=== PATIENT | male | born 1940 | race Caucasian/White ===

== ENCOUNTER 2022-04-12 02:32 | Inpatient (IN) | payer MEDICARE, BC ==
[2022-04-12] MEDS ORDERED: Ondansetron PF 4 MG/2 ML Vial IVP PRN (06:30)
[2022-04-12] MEDS ORDERED: Ondansetron ODT 4 MG TAB SL PRN (06:30)
[2022-04-12] MEDS ORDERED: Acetaminophen 325 MG TAB PO PRN (07:20)
[2022-04-12] MEDS ORDERED: Senokot S 8.6-50 MG TAB PO PRN (07:20)
[2022-04-12] MEDS ORDERED: Bisacodyl 5 MG TAB PO PRN (07:20)
[2022-04-12] MEDS ORDERED: Calcium Carbonate 500 MG ChewTAB PO PRN (07:20)
[2022-04-12] MEDS ORDERED: Dextrose 5% in Water 1,000 ML IV PRN (07:33)
[2022-04-12 08:40] LABS: #Basophils 0.1 thou/uL (0.0-0.2); #Eosinphils 0.3 thou/uL (0.0-0.7); #Lymphocytes 1.4 thou/uL (1.20-3.40); #Monocytes 0.5 thou/uL (0.11-0.59); #Neutrophils 4.6 thou/uL (1.40-6.50); %Basophils 1.2 % (0.0-1.0); %Eosinophils 4.4 % (0.0-10.0); %Lymphocytes 20.3 % (21.0-51.0); %Monocytes 7.1 % (0.0-10.0); %Neutrophils 66.9 % (42.0-75.0); Mean Corpuscular HGB CONC 27.7 g/dL (32.0-36.0); Mean Corpuscular Hemoglobin 24.6 pg (27.0-31.0); Mean Corpuscular Volume 88.7 fl (78.0-98.0); Mean Platelet Volume 10.3 fL (7.4-10.4); Platelet Count 146 thou/uL (130-400); RBC Distribution Width 19.9 % (11.5-14.5); Red Blood Cell (RBC) Count 4.48 mill/uL (4.70-6.10); White Blood Cell (WBC) Count 6.8 thou/uL (4.8-10.8)
[2022-04-12 08:55] LABS: ALT (SGPT) 16 U/L (8-55); AST (SGOT) 15 U/L (5-34); Alkaline Phosphatase 171 U/L (40-110); Anion Gap 12 mmol/L (10-20); BUN (Urea Nitrogen) 31 mg/dL (8.4-25.7); Bilirubin, Total 0.6 mg/dL (0.2-1.2); Calc. Creatinine Clearance 64 mL/min (70-130); Calcium 8.8 mg/dL (7.8-10.44); Carbon Dioxide 37 mmol/L (23-31); Chloride 101 mmol/L (98-107); Estimated GFR 55; Globulin 3.1 g/dL (2.4-3.5); Potassium 4.1 mmol/L (3.5-5.1); Protein, Total 6.1 g/dL (5.8-8.1); Sodium 146 mmol/L (136-145)
[2022-04-12 08:59] LABS: Glucose 56 mg/dL (83-110)
[2022-04-12 09:00] LABS: Troponin I 0.041 ng/mL (< 0.028)
[2022-04-12] MEDS ORDERED: Vancomycin 1 GM in Premix Bag 1 BAG IVPB SCH (09:00)
[2022-04-12] MEDS: Enoxaparin Sodium 40 MG/0.4 ML SYRINGE SC SCH (09:51)
[2022-04-12] MEDS: Dutasteride 0.5 MG CAP PO SCH (09:52)
[2022-04-12] MEDS: Aspirin 81 mg Enteric Coated Tablet PO SCH (09:52)
[2022-04-12] MEDS: Levothyroxine Sodium 75 MCG TAB PO SCH (09:53)
[2022-04-12] MEDS: Tamsulosin HCl 0.4 MG CAP PO SCH (09:53)
[2022-04-12] MEDS ORDERED: Piperacillin/Tazobactam 3.375 GM in Sodium Chloride 0.9% 100 ML IVPB SCH (10:00)
[2022-04-12] MEDS: Furosemide 40 MG/4 ML VIAL SLOW IVP SCH ×2 (11:39→22:48)
[2022-04-12] MEDS: Albumin 25% 25 GM/100 ML BOT IVPB SCH ×2 (11:39→22:48)
[2022-04-12] MEDS: AMPicillin 1 GM in Sodium Chloride 0.9% 100 ML IVPB SCH ×2 (12:56→19:54)
[2022-04-12 13:07] LABS: Troponin I 0.042 ng/mL (< 0.028)
[2022-04-12] MEDS ORDERED: FLU VACC QS2022-23(65YR UP)/PF 240 MCG/0.7 ML SYRINGE IM ONE (14:00)
[2022-04-12] MEDS: Dextrose 50% Abboject 50 ML SYRINGE SLOW IVP PRN (14:38)
[2022-04-12] MEDS ORDERED: Dextrose 10% in Water 1,000 ML IV SCH (18:30)
[2022-04-12] MEDS: Arformoterol 15 MCG/2 ML NEB NEB SCH (19:17)
[2022-04-12] MEDS ORDERED: Dextrose 10% in Water 500 ML IV SCH (20:00)
[2022-04-13] MEDS: AMPicillin 1 GM in Sodium Chloride 0.9% 100 ML IVPB SCH ×5 (00:55→23:33)
[2022-04-13 05:34] LABS: ALT (SGPT) 16 U/L (8-55); AST (SGOT) 14 U/L (5-34); Albumin 3.6 g/dL (3.4-4.8); Alkaline Phosphatase 161 U/L (40-110); BUN (Urea Nitrogen) 27 mg/dL (8.4-25.7); Bilirubin, Total 0.8 mg/dL (0.2-1.2); Calc. Creatinine Clearance 65 mL/min (70-130); Estimated GFR 56; Globulin 2.9 g/dL (2.4-3.5); Glucose 221 mg/dL (83-110); Protein, Total 6.5 g/dL (5.8-8.1)
[2022-04-13 05:43] LABS: Anion Gap 20 mmol/L (10-20); Carbon Dioxide 33 mmol/L (23-31); Chloride 97 mmol/L (98-107); Potassium 4.5 mmol/L (3.5-5.1); Sodium 145 mmol/L (136-145)
[2022-04-13 06:34] LABS: Magnesium 1.9 mg/dL (1.6-2.6)
[2022-04-13 06:38] LABS: Troponin I 0.042 ng/mL (< 0.028)
[2022-04-13] MEDS: Arformoterol 15 MCG/2 ML NEB NEB SCH ×2 (07:05→20:17)
[2022-04-13 07:33] LABS: Actual Bicarbonate (HCO3a) 39.7 mEq/L (22-28); Base Excess (BEa) 12.8 mEq/L (-2.0 to +3.0); Calcium, Ionized (arterial) 1.08 mmol/L (1.12-1.30); Carboxyhemoglobin (COHb) 1.3 gm% (0.0-3.0); Hemoglobin (Hb) 11.3 g/dL (14.0-18.0); Potassium - ABG Lab 4.44 mmol/L (3.70-5.30); pH, Arterial 7.41 (7.35-7.45)
[2022-04-13 07:40] LABS: O2 Tension (PaO2), arterial 44.8 mmHg (> 70.0); Puncture Site LRA
[2022-04-13] MEDS: Enoxaparin Sodium 40 MG/0.4 ML SYRINGE SC SCH (08:57)
[2022-04-13] MEDS: Aspirin 81 mg Enteric Coated Tablet PO SCH (08:58)
[2022-04-13] MEDS: Dutasteride 0.5 MG CAP PO SCH (08:59)
[2022-04-13] MEDS: Levothyroxine Sodium 75 MCG TAB PO SCH (08:59)
[2022-04-13] MEDS: Tamsulosin HCl 0.4 MG CAP PO SCH (08:59)
[2022-04-13] MEDS: Furosemide 40 MG/4 ML VIAL SLOW IVP SCH ×2 (10:07→21:12)
[2022-04-13] MEDS: Albumin 25% 25 GM/100 ML BOT IVPB SCH ×3 (10:07→21:12)
[2022-04-13] MEDS ORDERED: Midazolam HCl 2 mg/2 ml Vial SLOW IVP PRN (18:01)
[2022-04-13] MEDS: OLANZapine 10 MG VIAL IM SCH ×2 (18:07→18:32)
[2022-04-14 05:27] LABS: #Basophils 0.1 thou/uL (0.0-0.2); #Eosinphils 0.1 thou/uL (0.0-0.7); #Lymphocytes 1.2 thou/uL (1.20-3.40); #Monocytes 0.6 thou/uL (0.11-0.59); %Basophils 0.7 % (0.0-1.0); %Eosinophils 0.9 % (0.0-10.0); %Lymphocytes 16.8 % (21.0-51.0); %Monocytes 8.6 % (0.0-10.0); Hemoglobin 10.4 g/dL (14.0-18.0); Mean Corpuscular HGB CONC 27.6 g/dL (32.0-36.0); Mean Corpuscular Hemoglobin 24.5 pg (27.0-31.0); Mean Corpuscular Volume 88.8 fl (78.0-98.0); Mean Platelet Volume 10.3 fL (7.4-10.4); Platelet Count 171 thou/uL (130-400); RBC Distribution Width 19.7 % (11.5-14.5); Red Blood Cell (RBC) Count 4.26 mill/uL (4.70-6.10); White Blood Cell (WBC) Count 6.8 thou/uL (4.8-10.8)
[2022-04-14 05:37] LABS: ALT (SGPT) 96 U/L (8-55); AST (SGOT) 89 U/L (5-34); Albumin 4.1 g/dL (3.4-4.8); Alkaline Phosphatase 328 U/L (40-110); Anion Gap 16 mmol/L (10-20); BUN (Urea Nitrogen) 36 mg/dL (8.4-25.7); Bilirubin, Total 1.6 mg/dL (0.2-1.2); Calc. Creatinine Clearance 54 mL/min (70-130); Calcium 9.4 mg/dL (7.8-10.44); Carbon Dioxide 37 mmol/L (23-31); Chloride 96 mmol/L (98-107); Estimated GFR 46; Globulin 2.8 g/dL (2.4-3.5); Glucose 280 mg/dL (83-110); Potassium 5.2 mmol/L (3.5-5.1); Protein, Total 6.9 g/dL (5.8-8.1); Sodium 144 mmol/L (136-145)
[2022-04-14] MEDS: AMPicillin 1 GM in Sodium Chloride 0.9% 100 ML IVPB SCH (06:00)
[2022-04-14] MEDS: Arformoterol 15 MCG/2 ML NEB NEB SCH ×2 (07:21→18:26)
[2022-04-14] MEDS: Dutasteride 0.5 MG CAP PO SCH (08:20)
[2022-04-14] MEDS: Enoxaparin Sodium 40 MG/0.4 ML SYRINGE SC SCH (08:20)
[2022-04-14] MEDS: Levothyroxine Sodium 75 MCG TAB PO SCH (08:20)
[2022-04-14] MEDS: Tamsulosin HCl 0.4 MG CAP PO SCH (08:21)
[2022-04-14] MEDS: Aspirin 81 mg Enteric Coated Tablet PO SCH (08:21)
[2022-04-14] MEDS: Insulin Glargine 30 UNITS/0.3 ML VIAL SC SCH (08:22)
[2022-04-14] MEDS ORDERED: Furosemide 100 MG/10 ML VIAL SLOW IVP SCH (09:45)
[2022-04-14] MEDS: cefTRIAXone\\ROCEPHIN 1 GM in Sodium Chloride 0.9% 100 ML IVPB SCH (11:46)
[2022-04-14 12:22] LABS: Actual Bicarbonate (HCO3a) 38.9 mEq/L (22-28); Base Excess (BEa) 9.2 mEq/L (-2.0 to +3.0); Calcium, Ionized (arterial) 1.16 mmol/L (1.12-1.30); Carboxyhemoglobin (COHb) 1.4 gm% (0.0-3.0); Hemoglobin (Hb) 12.1 g/dL (14.0-18.0); O2 Tension (PaO2), arterial 94.4 mmHg (> 70.0); Potassium - ABG Lab 5.03 mmol/L (3.70-5.30); pH, Arterial 7.28 (7.35-7.45)
[2022-04-14 12:34] LABS: CO2 Tension 84.2 mmHg (35.0-45.0); Puncture Site RBA
[2022-04-14 12:49] LABS: Bilirubin Negative (Negative); Blood, Urine 2+ (Negative); Clarity Extra Turbid (Clear); Glucose, Urine (Dipstick) Normal (Negative); Ketone, Urine Trace mg/dL (Negative); Leukocyte 500 Leu/uL (Negative); Nitrite Negative (Negative); Protein, Urine (Dipstick) 100 mg/dL (Neg-Trace); RBC/HPF Greater than 50 HPF (0-3); Specific Gravity, Urine 1.021 (1.002-1.036); Squamous Epithelial None Seen HPF (0-3); WBC/HPF Greater than 50 HPF (0-3); Yeast-Budding 2+ HPF (None Seen)
[2022-04-14 12:56] LABS: Bacteria/HPF 1+ HPF (None Seen)
[2022-04-14 12:57] LABS: Urine Culture Reflex Yes Yes
[2022-04-14] MEDS ORDERED: Rocuronium Bromide 10 MG/ML (10ML VIAL) ONE ×2 (13:00→13:25)
[2022-04-14] MEDS ORDERED: Propofol 1,000 MG/100 ML VIAL IV ONE (13:06)
[2022-04-14] MEDS ORDERED: diphenhydrAMINE 50 MG/ML VIAL ONE (13:07)
[2022-04-14] MEDS ORDERED: methylPREDNISolone Sod Succ 40 MG VIAL ONE (13:07)
[2022-04-14] MEDS ORDERED: Famotidine/PF 20 mg/2ml Vial ONE (13:07)
[2022-04-14] MEDS ORDERED: EPINEPHrine 1 MG/ML AMP ONE (13:07)
[2022-04-14] MEDS ORDERED: Fentanyl CADD 100 ML ONE (13:18)
[2022-04-14] MEDS ORDERED: Ventilator Sedation Protocol 1 EACH FS ONE (13:22)
[2022-04-14] MEDS ORDERED: Electrolyte Replacement Protocol 1 EACH FS SCH (13:22)
[2022-04-14] MEDS ORDERED: Rocuronium Bromide 10 MG/ML (10ML VIAL) IVP SCH (13:30)
[2022-04-14] MEDS ORDERED: Fentanyl BOLUS 250 ML IVPB PRN (13:45)
[2022-04-14] MEDS ORDERED: Morphine 4 MG/ML VIAL SLOW IVP PRN (13:45)
[2022-04-14] MEDS ORDERED: DISCONTINUE PREVIOUS NARCOTIC PAIN MEDICATIONS AND BENZODIAZEPINES FS SCH (13:45)
[2022-04-14] MEDS ORDERED: Propofol BOLUS 1,000 MG/100 ML VIAL IV PRN (13:45)
[2022-04-14] MEDS ORDERED: Magnesium 2 GM/50 ML(in water) 2 GM in Premix Bag 1 BAG IVPB SCH (14:00)
[2022-04-14 14:37] LABS: Actual Bicarbonate (HCO3a) 33.9 mEq/L (22-28); Base Excess (BEa) 10.6 mEq/L (-2.0 to +3.0); CO2 Tension 39.7 mmHg (35.0-45.0); Calcium, Ionized (arterial) 1.06 mmol/L (1.12-1.30); Carboxyhemoglobin (COHb) 1.3 gm% (0.0-3.0); Hemoglobin (Hb) 11.4 g/dL (14.0-18.0)
[2022-04-14 14:39] LABS: ALV-art Gradient 247.975 mmHg (0-20); O2 Tension (PaO2), arterial 58.9 mmHg (> 70.0); Puncture Site RBA; pH, Arterial 7.55 (7.35-7.45)
[2022-04-14] MEDS: Furosemide 100 MG/10 ML VIAL SLOW IVP SCH (14:48)
[2022-04-14] MEDS: DOBUTamine 500 mg/250 ml 250 ML IVPB SCH (14:50)
[2022-04-14] MEDS: HumaLOG 300 UNITS/3 ML VIAL SC PRN ×2 (16:50→20:46)
[2022-04-15 04:22] LABS: #Eosinphils 0.2 thou/uL (0.0-0.7); #Lymphocytes 1.4 thou/uL (1.20-3.40); #Monocytes 0.5 thou/uL (0.11-0.59); #Neutrophils 5.8 thou/uL (1.40-6.50); %Basophils 0.2 % (0.0-1.0); %Lymphocytes 18.1 % (21.0-51.0); %Neutrophils 73.8 % (42.0-75.0); Hemoglobin 9.6 g/dL (14.0-18.0); Mean Corpuscular HGB CONC 27.8 g/dL (32.0-36.0); Mean Corpuscular Volume 86.2 fl (78.0-98.0); Mean Platelet Volume 10.5 fL (7.4-10.4); Platelet Count 166 thou/uL (130-400); RBC Distribution Width 19.7 % (11.5-14.5); Red Blood Cell (RBC) Count 4.01 mill/uL (4.70-6.10); White Blood Cell (WBC) Count 7.9 thou/uL (4.8-10.8)
[2022-04-15 04:30] LABS: BUN (Urea Nitrogen) 39 mg/dL (8.4-25.7); Calc. Creatinine Clearance 56 mL/min (70-130); Estimated GFR 47; Glucose 143 mg/dL (83-110)
[2022-04-15 04:39] LABS: Anion Gap 16 mmol/L (10-20); Carbon Dioxide 36 mmol/L (23-31); Chloride 100 mmol/L (98-107); Sodium 148 mmol/L (136-145)
[2022-04-15] MEDS: Furosemide 100 MG/10 ML VIAL SLOW IVP SCH ×2 (05:14→14:37)
[2022-04-15] MEDS: Arformoterol 15 MCG/2 ML NEB NEB SCH ×2 (07:30→18:30)
[2022-04-15 07:52] LABS: Actual Bicarbonate (HCO3a) 37.4 mEq/L (22-28); Base Excess (BEa) 14.3 mEq/L (-2.0 to +3.0); CO2 Tension 40.2 mmHg (35.0-45.0); Calcium, Ionized (arterial) 1.08 mmol/L (1.12-1.30); Carboxyhemoglobin (COHb) 0.6 gm% (0.0-3.0); Hemoglobin (Hb) 10.5 g/dL (14.0-18.0); O2 Tension (PaO2), arterial 73.2 mmHg (> 70.0); Potassium - ABG Lab 3.46 mmol/L (3.70-5.30)
[2022-04-15 08:00] LABS: Puncture Site RRA; pH, Arterial 7.59 (7.35-7.45)
[2022-04-15] MEDS ORDERED: Magnesium 2 GM/50 ML(in water) 2 GM in Premix Bag 1 BAG IVPB SCH (09:15)
[2022-04-15] MEDS: Pantoprazole 40 MG VIAL IVP SCH (09:39)
[2022-04-15] MEDS: acetaZOLAMIDE Sodium 500 mg Vial IVP SCH ×2 (09:40→21:24)
[2022-04-15] MEDS: Levothyroxine Sodium 75 MCG TAB PO SCH (09:40)
[2022-04-15] MEDS: Aspirin 81 mg Enteric Coated Tablet PO SCH (09:40)
[2022-04-15] MEDS: Tamsulosin HCl 0.4 MG CAP PO SCH (09:40)
[2022-04-15] MEDS: Dutasteride 0.5 MG CAP PO SCH (09:40)
[2022-04-15] MEDS: Insulin Glargine 30 UNITS/0.3 ML VIAL SC SCH (09:41)
[2022-04-15] MEDS: Enoxaparin Sodium 40 MG/0.4 ML SYRINGE SC SCH (09:41)
[2022-04-15] MEDS: Micafungin 100 MG in Sodium Chloride 0.9% 100 ML IVPB SCH (09:51)
[2022-04-15] MEDS: cefTRIAXone\\ROCEPHIN 1 GM in Sodium Chloride 0.9% 100 ML IVPB SCH (11:34)
[2022-04-15] MEDS: Fentanyl CADD 100 ML IV SCH (13:45)
[2022-04-15] MEDS: Midazolam HCl 2 mg/2 ml Vial SLOW IVP PRN (14:37)
[2022-04-15] MEDS: DOBUTamine 500 mg/250 ml 250 ML IVPB SCH (23:57)
[2022-04-16] MEDS: Midazolam HCl 2 mg/2 ml Vial SLOW IVP PRN (01:31)
[2022-04-16 05:16] LABS: #Eosinphils 0.2 thou/uL (0.0-0.7); #Lymphocytes 1.4 thou/uL (1.20-3.40); #Monocytes 0.5 thou/uL (0.11-0.59); %Basophils 0.4 % (0.0-1.0); %Eosinophils 2.5 % (0.0-10.0); %Lymphocytes 16.6 % (21.0-51.0); %Monocytes 6.3 % (0.0-10.0); %Neutrophils 74.2 % (42.0-75.0); Hemoglobin 9.6 g/dL (14.0-18.0); Mean Corpuscular HGB CONC 27.6 g/dL (32.0-36.0); Mean Corpuscular Hemoglobin 23.7 pg (27.0-31.0); Mean Platelet Volume 10.7 fL (7.4-10.4); Platelet Count 176 thou/uL (130-400); RBC Distribution Width 19.9 % (11.5-14.5); Red Blood Cell (RBC) Count 4.06 mill/uL (4.70-6.10); White Blood Cell (WBC) Count 8.1 thou/uL (4.8-10.8)
[2022-04-16 05:18] LABS: BUN (Urea Nitrogen) 37 mg/dL (8.4-25.7); Calc. Creatinine Clearance 57 mL/min (70-130); Calcium 8.6 mg/dL (7.8-10.44); Estimated GFR 48; Glucose 135 mg/dL (83-110); Magnesium 2.5 mg/dL (1.6-2.6)
[2022-04-16 05:28] LABS: Chloride 100 mmol/L (98-107); Potassium 3.1 mmol/L (3.5-5.1); Sodium 148 mmol/L (136-145)
[2022-04-16] MEDS: Furosemide 100 MG/10 ML VIAL SLOW IVP SCH ×2 (05:28→14:05)
[2022-04-16 05:31] LABS: Anion Gap 18 mmol/L (10-20); Carbon Dioxide 33 mmol/L (23-31)
[2022-04-16] MEDS: Potassium Chloride 20 MEQ in Premix Bag 1 BAG IVPB SCH ×2 (06:40→08:44)
[2022-04-16 07:19] LABS: Actual Bicarbonate (HCO3a) 36.9 mEq/L (22-28); Base Excess (BEa) 11.4 mEq/L (-2.0 to +3.0); Calcium, Ionized (arterial) 1.09 mmol/L (1.12-1.30); Carboxyhemoglobin (COHb) 0.8 gm% (0.0-3.0); Hemoglobin (Hb) 10.7 g/dL (14.0-18.0); O2 Tension (PaO2), arterial 80.6 mmHg (> 70.0); Potassium - ABG Lab 3.23 mmol/L (3.70-5.30); pH, Arterial 7.45 (7.35-7.45)
[2022-04-16] MEDS: Arformoterol 15 MCG/2 ML NEB NEB SCH ×2 (07:28→18:53)
[2022-04-16] MEDS: Tamsulosin HCl 0.4 MG CAP PO SCH (08:43)
[2022-04-16] MEDS: Aspirin 81 mg Enteric Coated Tablet PO SCH (08:43)
[2022-04-16] MEDS: Levothyroxine Sodium 75 MCG TAB PO SCH (08:43)
[2022-04-16] MEDS: Dutasteride 0.5 MG CAP PO SCH (08:43)
[2022-04-16] MEDS: Pantoprazole 40 MG VIAL IVP SCH (08:44)
[2022-04-16] MEDS: Enoxaparin Sodium 40 MG/0.4 ML SYRINGE SC SCH (08:44)
[2022-04-16] MEDS: acetaZOLAMIDE Sodium 500 mg Vial IVP SCH ×2 (08:44→20:06)
[2022-04-16] MEDS: Insulin Glargine 30 UNITS/0.3 ML VIAL SC SCH (08:44)
[2022-04-16] MEDS: Micafungin 100 MG in Sodium Chloride 0.9% 100 ML IVPB SCH (09:02)
[2022-04-16] MEDS: HumaLOG 300 UNITS/3 ML VIAL SC PRN (09:32)
[2022-04-16] MEDS: Fentanyl CADD 100 ML IV SCH (09:37)
[2022-04-16] MEDS ORDERED: Furosemide 100 MG/10 ML VIAL SLOW IVP SCH (10:30)
[2022-04-16] MEDS: cefTRIAXone\\ROCEPHIN 1 GM in Sodium Chloride 0.9% 100 ML IVPB SCH (11:11)
[2022-04-16 15:57] LABS: Potassium 3.5 mmol/L (3.5-5.1)
[2022-04-16] MEDS: Propofol 1,000 MG/100 ML VIAL IV PRN (19:00)
[2022-04-16] MEDS: Dextrose 50% Abboject 50 ML SYRINGE SLOW IVP PRN (20:16)
[2022-04-16 23:55] LABS: Anion Gap 13 mmol/L (10-20); BUN (Urea Nitrogen) 33 mg/dL (8.4-25.7); Calc. Creatinine Clearance 54 mL/min (70-130); Calcium 8.4 mg/dL (7.8-10.44); Carbon Dioxide 35 mmol/L (23-31); Chloride 102 mmol/L (98-107); Estimated GFR 45; Glucose 146 mg/dL (83-110); Magnesium 2.4 mg/dL (1.6-2.6); Potassium 3.2 mmol/L (3.5-5.1); Sodium 147 mmol/L (136-145)
[2022-04-17] MEDS ORDERED: Potassium Chloride 20 MEQ in Premix Bag 1 BAG IVPB SCH (00:30)
[2022-04-17] MEDS: Propofol 1,000 MG/100 ML VIAL IV PRN ×4 (01:59→21:45)
[2022-04-17 03:55] LABS: #Eosinphils 0.3 thou/uL (0.0-0.7); #Lymphocytes 1.6 thou/uL (1.20-3.40); #Monocytes 0.6 thou/uL (0.11-0.59); #Neutrophils 6.1 thou/uL (1.40-6.50); %Basophils 0.5 % (0.0-1.0); %Eosinophils 3.6 % (0.0-10.0); %Lymphocytes 18.8 % (21.0-51.0); %Monocytes 6.8 % (0.0-10.0); %Neutrophils 70.3 % (42.0-75.0); Hemoglobin 9.7 g/dL (14.0-18.0); Mean Corpuscular HGB CONC 27.9 g/dL (32.0-36.0); Mean Corpuscular Hemoglobin 23.8 pg (27.0-31.0); Mean Corpuscular Volume 85.2 fl (78.0-98.0); Mean Platelet Volume 10.5 fL (7.4-10.4); Platelet Count 175 thou/uL (130-400); RBC Distribution Width 19.8 % (11.5-14.5); Red Blood Cell (RBC) Count 4.06 mill/uL (4.70-6.10); White Blood Cell (WBC) Count 8.7 thou/uL (4.8-10.8)
[2022-04-17 04:03] LABS: Anion Gap 13 mmol/L (10-20); BUN (Urea Nitrogen) 32 mg/dL (8.4-25.7); Calc. Creatinine Clearance 54 mL/min (70-130); Carbon Dioxide 34 mmol/L (23-31); Chloride 103 mmol/L (98-107); Potassium 3.3 mmol/L (3.5-5.1); Sodium 147 mmol/L (136-145)
[2022-04-17 04:04] LABS: Calcium 8.4 mg/dL (7.8-10.44); Estimated GFR 45; Glucose 151 mg/dL (83-110); Magnesium 2.4 mg/dL (1.6-2.6)
[2022-04-17] MEDS: Furosemide 100 MG/10 ML VIAL SLOW IVP SCH ×2 (05:04→13:28)
[2022-04-17] MEDS: Arformoterol 15 MCG/2 ML NEB NEB SCH ×2 (08:01→20:00)
[2022-04-17 08:13] LABS: Actual Bicarbonate (HCO3a) 33.9 mEq/L (22-28); Base Excess (BEa) 10.2 mEq/L (-2.0 to +3.0); CO2 Tension 42.2 mmHg (35.0-45.0); Calcium, Ionized (arterial) 1.07 mmol/L (1.12-1.30); Carboxyhemoglobin (COHb) 0.8 gm% (0.0-3.0); Hemoglobin (Hb) 11.1 g/dL (14.0-18.0); Potassium - ABG Lab 3.18 mmol/L (3.70-5.30); pH, Arterial 7.52 (7.35-7.45)
[2022-04-17 08:14] LABS: Puncture Site RRA
[2022-04-17] MEDS: acetaZOLAMIDE Sodium 500 mg Vial IVP SCH ×2 (08:34→21:45)
[2022-04-17] MEDS: Pantoprazole 40 MG VIAL IVP SCH (08:34)
[2022-04-17] MEDS: DOBUTamine 500 mg/250 ml 250 ML IVPB SCH (08:38)
[2022-04-17] MEDS: Enoxaparin Sodium 40 MG/0.4 ML SYRINGE SC SCH (08:39)
[2022-04-17] MEDS: Insulin Glargine 30 UNITS/0.3 ML VIAL SC SCH (08:40)
[2022-04-17] MEDS: Aspirin 81 mg Enteric Coated Tablet PO SCH (08:41)
[2022-04-17] MEDS: Dutasteride 0.5 MG CAP PO SCH (08:41)
[2022-04-17] MEDS: Tamsulosin HCl 0.4 MG CAP PO SCH (08:41)
[2022-04-17] MEDS: Levothyroxine Sodium 75 MCG TAB PO SCH (08:42)
[2022-04-17] MEDS: Micafungin 100 MG in Sodium Chloride 0.9% 100 ML IVPB SCH (08:46)
[2022-04-17] MEDS: HumaLOG 300 UNITS/3 ML VIAL SC PRN ×2 (10:25→16:18)
[2022-04-17] MEDS: cefTRIAXone\\ROCEPHIN 1 GM in Sodium Chloride 0.9% 100 ML IVPB SCH (10:38)
[2022-04-17] MEDS ORDERED: Polyethylene Glycol 3350 17 GM Packet PO SCH (15:45)
[2022-04-17] MEDS ORDERED: Fentanyl CADD 100 ML ONE (17:33)
[2022-04-17] MEDS ORDERED: Senokot S 8.6-50 MG TAB PO SCH (21:00)
[2022-04-17] MEDS: Senokot S 8.6-50 MG TAB PO SCH (21:46)
[2022-04-18] MEDS: Propofol 1,000 MG/100 ML VIAL IV PRN ×4 (02:38→20:13)
[2022-04-18 05:08] LABS: #Eosinphils 0.5 thou/uL (0.0-0.7); #Lymphocytes 1.4 thou/uL (1.20-3.40); #Monocytes 0.6 thou/uL (0.11-0.59); #Neutrophils 4.7 thou/uL (1.40-6.50); %Basophils 0.5 % (0.0-1.0); %Eosinophils 6.3 % (0.0-10.0); %Lymphocytes 19.5 % (21.0-51.0); %Monocytes 7.6 % (0.0-10.0); %Neutrophils 66.1 % (42.0-75.0); Hemoglobin 9.8 g/dL (14.0-18.0); Mean Corpuscular Hemoglobin 24.3 pg (27.0-31.0); Mean Corpuscular Volume 86.7 fl (78.0-98.0); Mean Platelet Volume 10.4 fL (7.4-10.4); Platelet Count 171 thou/uL (130-400); RBC Distribution Width 19.6 % (11.5-14.5); Red Blood Cell (RBC) Count 4.04 mill/uL (4.70-6.10); White Blood Cell (WBC) Count 7.1 thou/uL (4.8-10.8)
[2022-04-18 05:33] LABS: Anion Gap 12 mmol/L (10-20); BUN (Urea Nitrogen) 30 mg/dL (8.4-25.7); Calc. Creatinine Clearance 55 mL/min (70-130); Calcium 8.2 mg/dL (7.8-10.44); Carbon Dioxide 36 mmol/L (23-31); Chloride 103 mmol/L (98-107); Estimated GFR 47; Glucose 220 mg/dL (83-110); Magnesium 2.4 mg/dL (1.6-2.6); Potassium 3.7 mmol/L (3.5-5.1); Sodium 147 mmol/L (136-145)
[2022-04-18] MEDS: Furosemide 100 MG/10 ML VIAL SLOW IVP SCH ×2 (05:52→13:08)
[2022-04-18] MEDS: HumaLOG 300 UNITS/3 ML VIAL SC PRN ×3 (05:54→17:30)
[2022-04-18] MEDS: Arformoterol 15 MCG/2 ML NEB NEB SCH ×2 (07:21→18:31)
[2022-04-18] MEDS: Midazolam HCl 2 mg/2 ml Vial SLOW IVP PRN ×2 (08:35→10:26)
[2022-04-18 08:42] LABS: Base Excess 8.2 mEq/L (-2.0 to +3.0); Calcium, Ionized (venous) 1.03 mmol/L (1.16-1.32); Chloride (VBG) 103 mmol/L (98-106); Hemoglobin (Hb) 11.4 g/dL (12.6-17.4); Potassium (VBG) 3.69 mmol/L (3.70-5.30); Sodium 143.1 mmol/L (133-146); pH (venous) 7.38 (7.32-7.43)
[2022-04-18] MEDS: acetaZOLAMIDE Sodium 500 mg Vial IVP SCH (08:42)
[2022-04-18] MEDS: Polyethylene Glycol 3350 17 GM Packet PO SCH (08:42)
[2022-04-18] MEDS: Pantoprazole 40 MG VIAL IVP SCH (08:42)
[2022-04-18] MEDS: Aspirin 81 mg Enteric Coated Tablet PO SCH (08:42)
[2022-04-18] MEDS: Dutasteride 0.5 MG CAP PO SCH (08:42)
[2022-04-18] MEDS: Enoxaparin Sodium 40 MG/0.4 ML SYRINGE SC SCH (08:42)
[2022-04-18] MEDS: Tamsulosin HCl 0.4 MG CAP PO SCH (08:42)
[2022-04-18] MEDS: Senokot S 8.6-50 MG TAB PO SCH ×2 (08:42→20:13)
[2022-04-18] MEDS: Levothyroxine Sodium 75 MCG TAB PO SCH (08:42)
[2022-04-18 08:46] LABS: Actual Bicarbonate (HCO3v) 35 mEq/L (22-28)
[2022-04-18] MEDS: Micafungin 100 MG in Sodium Chloride 0.9% 100 ML IVPB SCH (09:03)
[2022-04-18] MEDS: Insulin Glargine 30 UNITS/0.3 ML VIAL SC SCH (09:04)
[2022-04-18] MEDS: cefTRIAXone\\ROCEPHIN 1 GM in Sodium Chloride 0.9% 100 ML IVPB SCH (10:30)
[2022-04-19 04:06] LABS: #Basophils 0.1 thou/uL (0.0-0.2); #Eosinphils 0.4 thou/uL (0.0-0.7); #Lymphocytes 1.1 thou/uL (1.20-3.40); #Monocytes 0.5 thou/uL (0.11-0.59); #Neutrophils 4.6 thou/uL (1.40-6.50); %Basophils 0.8 % (0.0-1.0); %Eosinophils 6.1 % (0.0-10.0); %Monocytes 7.1 % (0.0-10.0); Hemoglobin 9.9 g/dL (14.0-18.0); Mean Corpuscular HGB CONC 28.4 g/dL (32.0-36.0); Mean Corpuscular Hemoglobin 25.1 pg (27.0-31.0); Mean Corpuscular Volume 88.6 fl (78.0-98.0); Mean Platelet Volume 10.3 fL (7.4-10.4); Platelet Count 178 thou/uL (130-400); RBC Distribution Width 18.9 % (11.5-14.5); Red Blood Cell (RBC) Count 3.92 mill/uL (4.70-6.10); White Blood Cell (WBC) Count 6.7 thou/uL (4.8-10.8)
[2022-04-19 04:22] LABS: Anion Gap 11 mmol/L (10-20); BUN (Urea Nitrogen) 29 mg/dL (8.4-25.7); Calc. Creatinine Clearance 63 mL/min (70-130); Calcium 8.2 mg/dL (7.8-10.44); Carbon Dioxide 34 mmol/L (23-31); Chloride 103 mmol/L (98-107); Estimated GFR 55; Glucose 226 mg/dL (83-110); Potassium 3.7 mmol/L (3.5-5.1); Sodium 144 mmol/L (136-145)
[2022-04-19] MEDS: Propofol 1,000 MG/100 ML VIAL IV PRN ×2 (04:47→10:27)
[2022-04-19] MEDS: Furosemide 100 MG/10 ML VIAL SLOW IVP SCH ×2 (05:32→14:01)
[2022-04-19] MEDS: Insulin Regular 300 UNITS/3 ML VIAL SC PRN (05:33)
[2022-04-19] MEDS: Arformoterol 15 MCG/2 ML NEB NEB SCH ×2 (07:28→19:05)
[2022-04-19 07:53] LABS: Actual Bicarbonate (HCO3a) 36.6 mEq/L (22-28); Base Excess (BEa) 8.6 mEq/L (-2.0 to +3.0); Carboxyhemoglobin (COHb) 1.2 gm% (0.0-3.0); Hemoglobin (Hb) 11.1 g/dL (14.0-18.0); O2 Tension (PaO2), arterial 75.5 mmHg (> 70.0); Potassium - ABG Lab 3.64 mmol/L (3.70-5.30); pH, Arterial 7.33 (7.35-7.45)
[2022-04-19 08:10] LABS: CO2 Tension 70.9 mmHg (35.0-45.0); Puncture Site RRA
[2022-04-19 08:11] LABS: ALV-art Gradient 121.075 mmHg (0-20)
[2022-04-19] MEDS: Insulin Glargine 30 UNITS/0.3 ML VIAL SC SCH (09:10)
[2022-04-19] MEDS: Enoxaparin Sodium 40 MG/0.4 ML SYRINGE SC SCH (09:10)
[2022-04-19] MEDS: Polyethylene Glycol 3350 17 GM Packet PO SCH (09:11)
[2022-04-19] MEDS: Levothyroxine Sodium 75 MCG TAB PO SCH (09:11)
[2022-04-19] MEDS: Pantoprazole 40 MG VIAL IVP SCH (09:11)
[2022-04-19] MEDS: Aspirin Chewable 81 MG TAB PER TUBE SCH (09:11)
[2022-04-19] MEDS: Tamsulosin HCl 0.4 MG CAP PO SCH (09:12)
[2022-04-19] MEDS: Dutasteride 0.5 MG CAP PO SCH (09:12)
[2022-04-19] MEDS: Senokot S 8.6-50 MG TAB PO SCH ×2 (09:12→22:17)
[2022-04-19] MEDS: Micafungin 100 MG in Sodium Chloride 0.9% 100 ML IVPB SCH (10:07)
[2022-04-19] MEDS: cefTRIAXone\\ROCEPHIN 1 GM in Sodium Chloride 0.9% 100 ML IVPB SCH (11:22)
[2022-04-19] MEDS: Scopolamine 1.5 mg/72 hour Patch TD SCH (12:50)
[2022-04-19] MEDS: Midazolam HCl 2 mg/2 ml Vial SLOW IVP PRN ×2 (12:51→19:25)
[2022-04-20 04:37] LABS: Mean Corpuscular HGB CONC 28.3 g/dL (32.0-36.0)
[2022-04-20 04:38] LABS: #Eosinphils 0.1 thou/uL (0.0-0.7); #Lymphocytes 1.5 thou/uL (1.20-3.40); #Monocytes 0.7 thou/uL (0.11-0.59); #Neutrophils 5.1 thou/uL (1.40-6.50); %Basophils 0.4 % (0.0-1.0); %Eosinophils 1.8 % (0.0-10.0); %Lymphocytes 20.3 % (21.0-51.0); %Monocytes 9.6 % (0.0-10.0); Hemoglobin 10.4 g/dL (14.0-18.0); Mean Corpuscular Hemoglobin 24.1 pg (27.0-31.0); Mean Corpuscular Volume 85.2 fl (78.0-98.0); Mean Platelet Volume 9.9 fL (7.4-10.4); Platelet Count 207 thou/uL (130-400); RBC Distribution Width 19.1 % (11.5-14.5); Red Blood Cell (RBC) Count 4.31 mill/uL (4.70-6.10); White Blood Cell (WBC) Count 7.5 thou/uL (4.8-10.8)
[2022-04-20 04:55] LABS: Anion Gap 10 mmol/L (10-20); BUN (Urea Nitrogen) 25 mg/dL (8.4-25.7); Calc. Creatinine Clearance 64 mL/min (70-130); Calcium 8.4 mg/dL (7.8-10.44); Carbon Dioxide 34 mmol/L (23-31); Chloride 102 mmol/L (98-107); Estimated GFR 57; Glucose 103 mg/dL (83-110); Potassium 3.3 mmol/L (3.5-5.1); Sodium 143 mmol/L (136-145)
[2022-04-20] MEDS: Furosemide 100 MG/10 ML VIAL SLOW IVP SCH ×2 (05:51→14:37)
[2022-04-20] MEDS: Arformoterol 15 MCG/2 ML NEB NEB SCH ×2 (07:00→18:12)
[2022-04-20 07:42] LABS: Actual Bicarbonate (HCO3a) 34.2 mEq/L (22-28); Base Excess (BEa) 9.1 mEq/L (-2.0 to +3.0); CO2 Tension 48.8 mmHg (35.0-45.0); Calcium, Ionized (arterial) 1.09 mmol/L (1.12-1.30); Carboxyhemoglobin (COHb) 0.9 gm% (0.0-3.0); Hemoglobin (Hb) 12.1 g/dL (14.0-18.0); O2 Tension (PaO2), arterial 69.4 mmHg (> 70.0); Potassium - ABG Lab 3.35 mmol/L (3.70-5.30); pH, Arterial 7.46 (7.35-7.45)
[2022-04-20 07:48] LABS: Puncture Site RRA
[2022-04-20] MEDS ORDERED: Potassium Bicarbonate/Cit Ac 20 MEQ TAB PER TUBE SCH (08:00)
[2022-04-20] MEDS: Aspirin Chewable 81 MG TAB PER TUBE SCH (08:52)
[2022-04-20] MEDS: Dutasteride 0.5 MG CAP PO SCH (08:52)
[2022-04-20] MEDS: Enoxaparin Sodium 40 MG/0.4 ML SYRINGE SC SCH (08:52)
[2022-04-20] MEDS: Levothyroxine Sodium 75 MCG TAB PO SCH (08:52)
[2022-04-20] MEDS: Insulin Glargine 30 UNITS/0.3 ML VIAL SC SCH (08:53)
[2022-04-20] MEDS: Senokot S 8.6-50 MG TAB PO SCH ×2 (08:54→20:12)
[2022-04-20] MEDS: Tamsulosin HCl 0.4 MG CAP PO SCH (08:54)
[2022-04-20] MEDS: Polyethylene Glycol 3350 17 GM Packet PO SCH (08:54)
[2022-04-20] MEDS: Pantoprazole 40 MG VIAL IVP SCH (08:54)
[2022-04-20] MEDS ORDERED: Magnesium 2 GM/50 ML(in water) 2 GM in Premix Bag 1 BAG IVPB SCH (09:30)
[2022-04-20] MEDS: Micafungin 100 MG in Sodium Chloride 0.9% 100 ML IVPB SCH (09:45)
[2022-04-20] MEDS: cefTRIAXone\\ROCEPHIN 1 GM in Sodium Chloride 0.9% 100 ML IVPB SCH (12:03)
[2022-04-20] MEDS ORDERED: FENTANYL 50 MCG/ML 1 ML VIAL SLOW IVP SCH (15:45)
[2022-04-21 04:07] LABS: #Eosinphils 0.1 thou/uL (0.0-0.7); #Lymphocytes 1.4 thou/uL (1.20-3.40); #Monocytes 0.8 thou/uL (0.11-0.59); #Neutrophils 6.7 thou/uL (1.40-6.50); %Basophils 0.2 % (0.0-1.0); %Eosinophils 1.3 % (0.0-10.0); %Lymphocytes 15.3 % (21.0-51.0); %Monocytes 8.4 % (0.0-10.0); %Neutrophils 74.9 % (42.0-75.0); Hemoglobin 10.8 g/dL (14.0-18.0); Mean Corpuscular HGB CONC 28.8 g/dL (32.0-36.0); Mean Corpuscular Hemoglobin 24.4 pg (27.0-31.0); Mean Corpuscular Volume 84.7 fl (78.0-98.0); Mean Platelet Volume 10.5 fL (7.4-10.4); Platelet Count 219 thou/uL (130-400); RBC Distribution Width 19.1 % (11.5-14.5); Red Blood Cell (RBC) Count 4.41 mill/uL (4.70-6.10)
[2022-04-21 04:26] LABS: Anion Gap 11 mmol/L (10-20); BUN (Urea Nitrogen) 27 mg/dL (8.4-25.7); Calc. Creatinine Clearance 71 mL/min (70-130); Calcium 8.7 mg/dL (7.8-10.44); Carbon Dioxide 33 mmol/L (23-31); Chloride 102 mmol/L (98-107); Estimated GFR 65; Glucose 99 mg/dL (83-110); Potassium 3.4 mmol/L (3.5-5.1); Sodium 143 mmol/L (136-145)
[2022-04-21] MEDS: Furosemide 100 MG/10 ML VIAL SLOW IVP SCH ×2 (05:33→14:00)
[2022-04-21] MEDS: Arformoterol 15 MCG/2 ML NEB NEB SCH ×2 (06:38→19:02)
[2022-04-21 07:34] LABS: Actual Bicarbonate (HCO3a) 33.2 mEq/L (22-28); Base Excess (BEa) 8.4 mEq/L (-2.0 to +3.0); Calcium, Ionized (arterial) 1.11 mmol/L (1.12-1.30); Carboxyhemoglobin (COHb) 0.7 gm% (0.0-3.0); Hemoglobin (Hb) 11.8 g/dL (14.0-18.0); O2 Tension (PaO2), arterial 124.7 mmHg (> 70.0); Potassium - ABG Lab 3.39 mmol/L (3.70-5.30); pH, Arterial 7.47 (7.35-7.45)
[2022-04-21 07:52] LABS: Puncture Site RRA
[2022-04-21] MEDS: Potassium Chloride 20 MEQ in Premix Bag 1 BAG IVPB SCH ×2 (09:05→12:00)
[2022-04-21] MEDS: Senokot S 8.6-50 MG TAB PO SCH ×2 (09:10→20:22)
[2022-04-21] MEDS: Enoxaparin Sodium 40 MG/0.4 ML SYRINGE SC SCH (09:10)
[2022-04-21] MEDS: Aspirin Chewable 81 MG TAB PER TUBE SCH (09:10)
[2022-04-21] MEDS: Polyethylene Glycol 3350 17 GM Packet PO SCH (09:10)
[2022-04-21] MEDS: Dutasteride 0.5 MG CAP PO SCH (09:10)
[2022-04-21] MEDS: Levothyroxine Sodium 75 MCG TAB PO SCH (09:10)
[2022-04-21] MEDS: Tamsulosin HCl 0.4 MG CAP PO SCH (09:10)
[2022-04-21] MEDS: Insulin Glargine 30 UNITS/0.3 ML VIAL SC SCH ×2 (09:11→10:31)
[2022-04-21] MEDS: Pantoprazole 40 MG VIAL IVP SCH (09:11)
[2022-04-21] MEDS ORDERED: acetaZOLAMIDE Sodium 500 mg Vial IVP SCH (09:30)
[2022-04-21] MEDS ORDERED: Sterile Water 10 ML ONE (09:33)
[2022-04-21] MEDS: Micafungin 100 MG in Sodium Chloride 0.9% 100 ML IVPB SCH (10:27)
[2022-04-21] MEDS: HumaLOG 300 UNITS/3 ML VIAL SC PRN (22:09)
[2022-04-22 04:10] LABS: #Eosinphils 0.2 thou/uL (0.0-0.7); #Lymphocytes 1.2 thou/uL (1.20-3.40); #Monocytes 0.6 thou/uL (0.11-0.59); #Neutrophils 5.4 thou/uL (1.40-6.50); %Basophils 0.6 % (0.0-1.0); %Eosinophils 2.6 % (0.0-10.0); %Lymphocytes 16.4 % (21.0-51.0); %Monocytes 8.5 % (0.0-10.0); %Neutrophils 71.9 % (42.0-75.0); Hemoglobin 10.9 g/dL (14.0-18.0); Mean Corpuscular HGB CONC 29.6 g/dL (32.0-36.0); Mean Corpuscular Hemoglobin 24.9 pg (27.0-31.0); Mean Corpuscular Volume 84.2 fl (78.0-98.0); Platelet Count 246 thou/uL (130-400); RBC Distribution Width 18.8 % (11.5-14.5); Red Blood Cell (RBC) Count 4.39 mill/uL (4.70-6.10); White Blood Cell (WBC) Count 7.6 thou/uL (4.8-10.8)
[2022-04-22 04:30] LABS: ALT (SGPT) 34 U/L (8-55); AST (SGOT) 31 U/L (5-34); Alkaline Phosphatase 179 U/L (40-110); Anion Gap 14 mmol/L (10-20); BUN (Urea Nitrogen) 35 mg/dL (8.4-25.7); Bilirubin, Total 0.5 mg/dL (0.2-1.2); Calc. Creatinine Clearance 69 mL/min (70-130); Calcium 8.9 mg/dL (7.8-10.44); Carbon Dioxide 30 mmol/L (23-31); Chloride 101 mmol/L (98-107); Estimated GFR 62; Globulin 3.6 g/dL (2.4-3.5); Glucose 263 mg/dL (83-110); Magnesium 2.3 mg/dL (1.6-2.6); Potassium 3.5 mmol/L (3.5-5.1); Protein, Total 6.6 g/dL (5.8-8.1); Sodium 141 mmol/L (136-145)
[2022-04-22] MEDS: Furosemide 100 MG/10 ML VIAL SLOW IVP SCH ×2 (05:15→13:38)
[2022-04-22] MEDS: HumaLOG 300 UNITS/3 ML VIAL SC PRN ×3 (05:15→17:01)
[2022-04-22 07:01] LABS: Actual Bicarbonate (HCO3a) 31.9 mEq/L (22-28); CO2 Tension 46.7 mmHg (35.0-45.0); Calcium, Ionized (arterial) 1.16 mmol/L (1.12-1.30); Carboxyhemoglobin (COHb) 0.5 gm% (0.0-3.0); Hemoglobin (Hb) 11.7 g/dL (14.0-18.0); O2 Tension (PaO2), arterial 108.1 mmHg (> 70.0); Potassium - ABG Lab 3.44 mmol/L (3.70-5.30); pH, Arterial 7.45 (7.35-7.45)
[2022-04-22 07:05] LABS: ALV-art Gradient 83.075 mmHg (0-20); Puncture Site RRA
[2022-04-22] MEDS: Arformoterol 15 MCG/2 ML NEB NEB SCH ×2 (07:20→18:55)
[2022-04-22] MEDS ORDERED: Potassium Chloride 20 MEQ TAB PO SCH (08:00)
[2022-04-22] MEDS: Pantoprazole 40 MG VIAL IVP SCH (09:30)
[2022-04-22] MEDS: Aspirin Chewable 81 MG TAB PER TUBE SCH (09:34)
[2022-04-22] MEDS: Senokot S 8.6-50 MG TAB PO SCH ×2 (09:34→21:25)
[2022-04-22] MEDS: Dutasteride 0.5 MG CAP PO SCH (09:35)
[2022-04-22] MEDS: Polyethylene Glycol 3350 17 GM Packet PO SCH (09:35)
[2022-04-22] MEDS: Levothyroxine Sodium 75 MCG TAB PO SCH (09:35)
[2022-04-22] MEDS: Tamsulosin HCl 0.4 MG CAP PO SCH (09:35)
[2022-04-22] MEDS: Enoxaparin Sodium 40 MG/0.4 ML SYRINGE SC SCH (09:35)
[2022-04-22] MEDS: Insulin Glargine 30 UNITS/0.3 ML VIAL SC SCH (09:36)
[2022-04-22] MEDS ORDERED: Potassium Bicarbonate/Cit Ac 20 MEQ TAB PO SCH (09:45)
[2022-04-22] MEDS: Scopolamine 1.5 mg/72 hour Patch TD SCH (12:04)
[2022-04-22] MEDS ORDERED: Empagliflozin 10 MG TAB PO SCH (13:30)
[2022-04-22 15:08] LABS: Potassium 3.9 mmol/L (3.5-5.1)
[2022-04-22] MEDS: Insulin Regular 300 UNITS/3 ML VIAL SC PRN (22:14)
[2022-04-23] MEDS: Midazolam HCl 2 mg/2 ml Vial SLOW IVP PRN (03:38)
[2022-04-23 04:17] LABS: #Eosinphils 0.2 thou/uL (0.0-0.7); #Lymphocytes 1.2 thou/uL (1.20-3.40); #Monocytes 0.5 thou/uL (0.11-0.59); #Neutrophils 4.4 thou/uL (1.40-6.50); %Basophils 0.6 % (0.0-1.0); %Eosinophils 3.6 % (0.0-10.0); %Lymphocytes 18.7 % (21.0-51.0); %Monocytes 8.5 % (0.0-10.0); %Neutrophils 68.7 % (42.0-75.0); Hemoglobin 10.4 g/dL (14.0-18.0); Mean Corpuscular HGB CONC 27.6 g/dL (32.0-36.0); Mean Corpuscular Hemoglobin 23.4 pg (27.0-31.0); Mean Corpuscular Volume 84.5 fl (78.0-98.0); Mean Platelet Volume 9.9 fL (7.4-10.4); Platelet Count 273 thou/uL (130-400); RBC Distribution Width 18.8 % (11.5-14.5); Red Blood Cell (RBC) Count 4.43 mill/uL (4.70-6.10); White Blood Cell (WBC) Count 6.3 thou/uL (4.8-10.8)
[2022-04-23 04:36] LABS: ALT (SGPT) 27 U/L (8-55); AST (SGOT) 20 U/L (5-34); Alkaline Phosphatase 182 U/L (40-110); Anion Gap 12 mmol/L (10-20); BUN (Urea Nitrogen) 45 mg/dL (8.4-25.7); Bilirubin, Total 0.4 mg/dL (0.2-1.2); Calc. Creatinine Clearance 63 mL/min (70-130); Calcium 9.1 mg/dL (7.8-10.44); Carbon Dioxide 32 mmol/L (23-31); Chloride 103 mmol/L (98-107); Estimated GFR 63; Globulin 3.7 g/dL (2.4-3.5); Glucose 267 mg/dL (83-110); Magnesium 2.3 mg/dL (1.6-2.6); Potassium 3.6 mmol/L (3.5-5.1); Protein, Total 6.7 g/dL (5.8-8.1); Sodium 143 mmol/L (136-145)
[2022-04-23] MEDS: HumaLOG 300 UNITS/3 ML VIAL SC PRN ×2 (05:36→09:26)
[2022-04-23] MEDS: Furosemide 100 MG/10 ML VIAL SLOW IVP SCH (05:43)
[2022-04-23] MEDS: Arformoterol 15 MCG/2 ML NEB NEB SCH ×2 (06:43→18:55)
[2022-04-23 06:52] LABS: Base Excess (BEa) 8.5 mEq/L (-2.0 to +3.0); CO2 Tension 45.5 mmHg (35.0-45.0); Calcium, Ionized (arterial) 1.15 mmol/L (1.12-1.30); Carboxyhemoglobin (COHb) 0.1 gm% (0.0-3.0); Hemoglobin (Hb) 11.8 g/dL (14.0-18.0); O2 Tension (PaO2), arterial 83.1 mmHg (> 70.0); Potassium - ABG Lab 3.34 mmol/L (3.70-5.30); pH, Arterial 7.48 (7.35-7.45)
[2022-04-23 06:53] LABS: ALV-art Gradient 109.575 mmHg (0-20); Puncture Site RRA
[2022-04-23] MEDS: Dutasteride 0.5 MG CAP PO SCH (08:32)
[2022-04-23] MEDS: Aspirin Chewable 81 MG TAB PER TUBE SCH (08:32)
[2022-04-23] MEDS: Empagliflozin 10 MG TAB PO SCH (08:32)
[2022-04-23] MEDS: Tamsulosin HCl 0.4 MG CAP PO SCH (08:32)
[2022-04-23] MEDS: Pantoprazole 40 MG VIAL IVP SCH (08:32)
[2022-04-23] MEDS: Levothyroxine Sodium 75 MCG TAB PO SCH (08:32)
[2022-04-23] MEDS: Senokot S 8.6-50 MG TAB PO SCH ×3 (08:32→21:17)
[2022-04-23] MEDS: Enoxaparin Sodium 40 MG/0.4 ML SYRINGE SC SCH (08:33)
[2022-04-23] MEDS: Polyethylene Glycol 3350 17 GM Packet PO SCH (08:33)
[2022-04-23] MEDS: Insulin Glargine 30 UNITS/0.3 ML VIAL SC SCH (09:24)
[2022-04-23] MEDS ORDERED: Insulin Glargine 30 UNITS/0.3 ML VIAL SC SCH ×2 (09:43→10:00)
[2022-04-23] MEDS ORDERED: Amiodarone 150 MG, Admixture Fee 1 EACH in Dextrose 5% in Water 100 ML IVPB SCH (21:15)
[2022-04-23] MEDS: Amiodarone 450 MG, Admixture Fee 1 EACH in Dextrose 5% in Water 250 ML IVPB SCH (21:35)
[2022-04-24] MEDS: Amiodarone 450 MG, Admixture Fee 1 EACH in Dextrose 5% in Water 250 ML IVPB SCH ×2 (04:24→20:35)
[2022-04-24 04:40] LABS: Hemoglobin 10.9 g/dL (14.0-18.0); Mean Corpuscular HGB CONC 29.6 g/dL (32.0-36.0); Mean Corpuscular Hemoglobin 25.1 pg (27.0-31.0); Mean Corpuscular Volume 84.9 fl (78.0-98.0); Mean Platelet Volume 9.5 fL (7.4-10.4); Platelet Count 293 thou/uL (130-400); RBC Distribution Width 18.6 % (11.5-14.5); Red Blood Cell (RBC) Count 4.35 mill/uL (4.70-6.10); White Blood Cell (WBC) Count 7.4 thou/uL (4.8-10.8)
[2022-04-24 04:41] LABS: #Basophils 0.1 thou/uL (0.0-0.2); #Eosinphils 0.2 thou/uL (0.0-0.7); #Lymphocytes 1.2 thou/uL (1.20-3.40); #Monocytes 0.7 thou/uL (0.11-0.59); #Neutrophils 5.3 thou/uL (1.40-6.50); %Basophils 0.7 % (0.0-1.0); %Eosinophils 2.3 % (0.0-10.0); %Lymphocytes 16.4 % (21.0-51.0); %Monocytes 9.6 % (0.0-10.0)
[2022-04-24 05:03] LABS: ALT (SGPT) 34 U/L (8-55); AST (SGOT) 30 U/L (5-34); Albumin 3.1 g/dL (3.4-4.8); Alkaline Phosphatase 157 U/L (40-110); Anion Gap 11 mmol/L (10-20); BUN (Urea Nitrogen) 43 mg/dL (8.4-25.7); Bilirubin, Total 0.6 mg/dL (0.2-1.2); Calc. Creatinine Clearance 60 mL/min (70-130); Calcium 9.1 mg/dL (7.8-10.44); Carbon Dioxide 33 mmol/L (23-31); Chloride 105 mmol/L (98-107); Estimated GFR 61; Globulin 3.7 g/dL (2.4-3.5); Glucose 119 mg/dL (83-110); Magnesium 2.3 mg/dL (1.6-2.6); Protein, Total 6.8 g/dL (5.8-8.1); Sodium 146 mmol/L (136-145)
[2022-04-24] MEDS: Potassium Chloride 20 MEQ in Premix Bag 1 BAG IVPB SCH ×4 (06:05→13:13)
[2022-04-24] MEDS: Arformoterol 15 MCG/2 ML NEB NEB SCH ×2 (06:38→18:43)
[2022-04-24] MEDS: Aspirin Chewable 81 MG TAB PER TUBE SCH ×2 (08:36→10:33)
[2022-04-24] MEDS: Dutasteride 0.5 MG CAP PO SCH ×2 (08:36→10:33)
[2022-04-24] MEDS: Levothyroxine Sodium 75 MCG TAB PO SCH ×2 (08:36→10:33)
[2022-04-24] MEDS: Enoxaparin Sodium 40 MG/0.4 ML SYRINGE SC SCH (08:36)
[2022-04-24] MEDS: Tamsulosin HCl 0.4 MG CAP PO SCH ×2 (08:36→10:33)
[2022-04-24] MEDS: Furosemide 100 MG/10 ML VIAL SLOW IVP SCH (08:36)
[2022-04-24] MEDS: Pantoprazole 40 MG VIAL IVP SCH (08:37)
[2022-04-24] MEDS: Empagliflozin 10 MG TAB PO SCH ×2 (08:41→10:33)
[2022-04-24] MEDS: Insulin Glargine 30 UNITS/0.3 ML VIAL SC SCH (09:13)
[2022-04-24 10:19] VITALS: BMI 29.9
[2022-04-24] MEDS: Polyethylene Glycol 3350 17 GM Packet PO SCH (10:23)
[2022-04-24] MEDS: Senokot S 8.6-50 MG TAB PO SCH ×2 (10:23→20:35)
[2022-04-24 16:33] LABS: Potassium 3.9 mmol/L (3.5-5.1)
[2022-04-24] MEDS ORDERED: Melatonin 3 MG TAB PO PRN (21:19)
[2022-04-25 05:23] LABS: #Basophils 0.1 thou/uL (0.0-0.2); #Eosinphils 0.1 thou/uL (0.0-0.7); #Lymphocytes 1.5 thou/uL (1.20-3.40); #Monocytes 0.7 thou/uL (0.11-0.59); #Neutrophils 7.2 thou/uL (1.40-6.50); %Basophils 0.7 % (0.0-1.0); %Lymphocytes 15.2 % (21.0-51.0); %Monocytes 7.6 % (0.0-10.0); %Neutrophils 75.5 % (42.0-75.0); Hemoglobin 10.8 g/dL (14.0-18.0); Hypochromia SLIGHT = 6-15 cells (100X) (0-5/hpf); MDiff Complete? YES; Mean Corpuscular HGB CONC 28.2 g/dL (32.0-36.0); Mean Corpuscular Hemoglobin 23.9 pg (27.0-31.0); Mean Corpuscular Volume 84.8 fl (78.0-98.0); Platelet Count 347 thou/uL (130-400); RBC Distribution Width 18.8 % (11.5-14.5); Red Blood Cell (RBC) Count 4.53 mill/uL (4.70-6.10); White Blood Cell (WBC) Count 9.6 thou/uL (4.8-10.8)
[2022-04-25 05:36] LABS: ALT (SGPT) 32 U/L (8-55); AST (SGOT) 38 U/L (5-34); Albumin 3.2 g/dL (3.4-4.8); Alkaline Phosphatase 159 U/L (40-110); Anion Gap 15 mmol/L (10-20); BUN (Urea Nitrogen) 41 mg/dL (8.4-25.7); Bilirubin, Total 0.8 mg/dL (0.2-1.2); Calc. Creatinine Clearance 56 mL/min (70-130); Calcium 9.5 mg/dL (7.8-10.44); Carbon Dioxide 29 mmol/L (23-31); Chloride 106 mmol/L (98-107); Estimated GFR 57; Globulin 4.1 g/dL (2.4-3.5); Glucose 154 mg/dL (83-110); Magnesium 2.3 mg/dL (1.6-2.6); Potassium 3.6 mmol/L (3.5-5.1); Protein, Total 7.3 g/dL (5.8-8.1); Sodium 146 mmol/L (136-145)
[2022-04-25] MEDS: Arformoterol 15 MCG/2 ML NEB NEB SCH ×2 (07:35→18:50)
[2022-04-25] MEDS: Tamsulosin HCl 0.4 MG CAP PO SCH ×2 (08:29→10:23)
[2022-04-25] MEDS: Empagliflozin 10 MG TAB PO SCH ×2 (08:29→09:00)
[2022-04-25] MEDS: Levothyroxine Sodium 75 MCG TAB PO SCH ×2 (08:29→10:23)
[2022-04-25] MEDS: Furosemide 100 MG/10 ML VIAL SLOW IVP SCH (08:29)
[2022-04-25] MEDS: Dutasteride 0.5 MG CAP PO SCH ×2 (08:29→10:22)
[2022-04-25] MEDS: Aspirin Chewable 81 MG TAB PER TUBE SCH ×2 (08:29→10:22)
[2022-04-25] MEDS: Enoxaparin Sodium 40 MG/0.4 ML SYRINGE SC SCH (08:30)
[2022-04-25] MEDS: Polyethylene Glycol 3350 17 GM Packet PO SCH (08:30)
[2022-04-25] MEDS: Senokot S 8.6-50 MG TAB PO SCH ×2 (08:30→20:43)
[2022-04-25] MEDS: Pantoprazole 40 MG VIAL IVP SCH (08:30)
[2022-04-25] MEDS: Insulin Glargine 30 UNITS/0.3 ML VIAL SC SCH (10:31)
[2022-04-25] MEDS: Scopolamine 1.5 mg/72 hour Patch TD SCH (10:50)
[2022-04-25] MEDS: traZODone HCl 50 MG TAB PO SCH (22:54)
[2022-04-26 06:10] LABS: #Eosinphils 0.1 thou/uL (0.0-0.7); #Lymphocytes 1.3 thou/uL (1.20-3.40); #Monocytes 0.5 thou/uL (0.11-0.59); #Neutrophils 6.8 thou/uL (1.40-6.50); %Basophils 0.4 % (0.0-1.0); %Eosinophils 1.1 % (0.0-10.0); %Lymphocytes 15.2 % (21.0-51.0); %Monocytes 5.6 % (0.0-10.0); %Neutrophils 77.7 % (42.0-75.0); Hemoglobin 10.6 g/dL (14.0-18.0); Mean Corpuscular HGB CONC 28.3 g/dL (32.0-36.0); Mean Corpuscular Volume 84.7 fl (78.0-98.0); Mean Platelet Volume 9.4 fL (7.4-10.4); Platelet Count 344 10x3/uL (130-400); RBC Distribution Width 18.6 % (11.5-14.5); Red Blood Cell (RBC) Count 4.43 mill/uL (4.70-6.10); White Blood Cell (WBC) Count 8.7 10x3/uL (4.8-10.8)
[2022-04-26 06:10] LABS: ALT (SGPT) 25 U/L (8-55); AST (SGOT) 20 U/L (5-34); Alkaline Phosphatase 132 U/L (40-110); Anion Gap 12 mmol/L (10-20); BUN (Urea Nitrogen) 41 mg/dL (8.4-25.7); Bilirubin, Total 0.7 mg/dL (0.2-1.2); Calc. Creatinine Clearance 58 mL/min (70-130); Calcium 9.2 mg/dL (7.8-10.44); Carbon Dioxide 32 mmol/L (23-31); Chloride 109 mmol/L (98-107); Estimated GFR 60; Globulin 3.8 g/dL (2.4-3.5); Glucose 156 mg/dL (83-110); Magnesium 2.3 mg/dL (1.6-2.6); Potassium 3.5 mmol/L (3.5-5.1); Protein, Total 6.8 g/dL (5.8-8.1); Sodium 149 mmol/L (136-145)
[2022-04-26] MEDS: Arformoterol 15 MCG/2 ML NEB NEB SCH ×2 (07:00→18:32)
[2022-04-26] MEDS: Potassium Chloride 20 MEQ in Premix Bag 1 BAG IVPB SCH ×2 (07:30→09:21)
[2022-04-26] MEDS: Dutasteride 0.5 MG CAP PO SCH (07:37)
[2022-04-26] MEDS: Aspirin Chewable 81 MG TAB PER TUBE SCH (07:37)
[2022-04-26] MEDS: Levothyroxine Sodium 75 MCG TAB PO SCH (07:37)
[2022-04-26] MEDS: Insulin Glargine 30 UNITS/0.3 ML VIAL SC SCH (07:38)
[2022-04-26] MEDS: Senokot S 8.6-50 MG TAB PO SCH ×3 (07:38→21:27)
[2022-04-26] MEDS: Empagliflozin 10 MG TAB PO SCH (07:38)
[2022-04-26] MEDS: Furosemide 100 MG/10 ML VIAL SLOW IVP SCH (07:38)
[2022-04-26] MEDS: Tamsulosin HCl 0.4 MG CAP PO SCH (07:38)
[2022-04-26] MEDS: Pantoprazole 40 MG VIAL IVP SCH (07:39)
[2022-04-26] MEDS: Polyethylene Glycol 3350 17 GM Packet PO SCH (07:39)
[2022-04-26] MEDS: Enoxaparin Sodium 40 MG/0.4 ML SYRINGE SC SCH (07:40)
[2022-04-26] MEDS: Furosemide 40 MG TAB PO SCH (13:44)
[2022-04-26] MEDS: Amiodarone 200 MG TAB PO SCH ×2 (20:57→21:26)
[2022-04-26] MEDS: traZODone HCl 50 MG TAB PO SCH (21:36)
[2022-04-26] MEDS: HumaLOG 300 UNITS/3 ML VIAL SC PRN (22:17)
[2022-04-26] MEDS: Amiodarone 450 MG in Dextrose 5% in Water 250 ML IVPB SCH (23:25)
[2022-04-27 03:52] LABS: #Eosinphils 0.2 thou/uL (0.0-0.7); #Lymphocytes 1.5 thou/uL (1.20-3.40); #Monocytes 0.5 thou/uL (0.11-0.59); #Neutrophils 6.6 thou/uL (1.40-6.50); %Basophils 0.1 % (0.0-1.0); %Eosinophils 1.8 % (0.0-10.0); %Lymphocytes 17.6 % (21.0-51.0); %Monocytes 5.4 % (0.0-10.0); %Neutrophils 75.1 % (42.0-75.0); Hemoglobin 11.8 g/dL (14.0-18.0); Mean Corpuscular Hemoglobin 24.2 pg (27.0-31.0); Mean Corpuscular Volume 83.5 fl (78.0-98.0); Mean Platelet Volume 9.6 fL (7.4-10.4); Platelet Count 385 10x3/uL (130-400); RBC Distribution Width 18.6 % (11.5-14.5); Red Blood Cell (RBC) Count 4.87 mill/uL (4.70-6.10); White Blood Cell (WBC) Count 8.8 10x3/uL (4.8-10.8)
[2022-04-27 04:05] LABS: Anion Gap 17 mmol/L (10-20); BUN (Urea Nitrogen) 44 mg/dL (8.4-25.7); Calc. Creatinine Clearance 55 mL/min (70-130); Calcium 9.6 mg/dL (7.8-10.44); Carbon Dioxide 29 mmol/L (23-31); Chloride 110 mmol/L (98-107); Estimated GFR 56; Glucose 181 mg/dL (83-110)
[2022-04-27] MEDS: HumaLOG 300 UNITS/3 ML VIAL SC PRN ×2 (04:12→10:17)
[2022-04-27 04:18] LABS: Sodium 152 mmol/L (136-145)
[2022-04-27] MEDS ORDERED: Sodium Chloride 0.45% 1,000 ML IV SCH (04:30)
[2022-04-27] MEDS: Arformoterol 15 MCG/2 ML NEB NEB SCH (06:24)
[2022-04-27] MEDS ORDERED: Dextrose 5% in Water 1,000 ML IV SCH (07:30)
[2022-04-27] MEDS: Dutasteride 0.5 MG CAP PO SCH (08:06)
[2022-04-27] MEDS: Enoxaparin Sodium 40 MG/0.4 ML SYRINGE SC SCH (08:06)
[2022-04-27] MEDS: Aspirin Chewable 81 MG TAB PER TUBE SCH (08:06)
[2022-04-27] MEDS: Pantoprazole 40 MG VIAL IVP SCH (08:06)
[2022-04-27] MEDS: Furosemide 40 MG TAB PO SCH ×2 (08:06→13:10)
[2022-04-27] MEDS: Tamsulosin HCl 0.4 MG CAP PO SCH (08:07)
[2022-04-27] MEDS: Empagliflozin 10 MG TAB PO SCH (08:07)
[2022-04-27] MEDS: Senokot S 8.6-50 MG TAB PO SCH (08:07)
[2022-04-27] MEDS: Polyethylene Glycol 3350 17 GM Packet PO SCH (08:07)
[2022-04-27] MEDS: Insulin Glargine 30 UNITS/0.3 ML VIAL SC SCH (08:07)
[2022-04-27] MEDS: Levothyroxine Sodium 75 MCG TAB PO SCH (08:08)
[2022-04-27] MEDS ORDERED: Saccharomyces boulardii 250 MG CAP PO SCH (10:30)
[2022-04-27 10:35] VITALS: BP 124/68
[2022-04-27] MEDS: Amiodarone 450 MG in Dextrose 5% in Water 250 ML IVPB SCH (13:24)
[2022-04-27 16:11] VITALS: TEMP 98.6
[2022-04-28] MEDS ORDERED: Saccharomyces boulardii 250 MG CAP PO SCH (09:00)
== END 2022-04-27 16:30 | DRG 698 ==
LOC: NEURO 05:30 → OBSVTOIN 07:20 → CCU 04-14 12:56
PROVIDERS: ADMIT Internal Medicine; ATTEND Internal Medicine
PROC: 0BH17EZ Insertion of Endotracheal Airway into Trachea, Via Natural or Artificial Opening (ICD-10-PCS; principal; 2022-04-14)
PROC: 5A1955Z Respiratory Ventilation, Greater than 96 Consecutive Hours (ICD-10-PCS; 2022-04-14)
PROC: 3E033XZ Introduction of Vasopressor into Peripheral Vein, Percutaneous Approach (ICD-10-PCS; 2022-04-14)
PROC: 0B9J8ZX Drainage of Left Lower Lung Lobe, Via Natural or Artificial Opening Endoscopic, Diagnostic (ICD-10-PCS; 2022-04-14)
PROC: 0B9F8ZX Drainage of Right Lower Lung Lobe, Via Natural or Artificial Opening Endoscopic, Diagnostic (ICD-10-PCS; 2022-04-14)
DX: T83.511A Infection and inflammatory reaction due to indwelling urethral catheter, initial encounter (principal); A41.9 Sepsis, unspecified organism; G93.41 Metabolic encephalopathy; I50.23 Acute on chronic systolic (congestive) heart failure; J96.01 Acute respiratory failure with hypoxia; R57.0 Cardiogenic shock; J96.02 Acute respiratory failure with hypercapnia; R65.21 Severe sepsis with septic shock; I13.0 Hypertensive heart and chronic kidney disease with heart failure and stage 1 through stage 4 chronic kidney disease, or unspecified chronic kidney disease; N17.9 Acute kidney failure, unspecified; E87.0 Hyperosmolality and hypernatremia; I42.0 Dilated cardiomyopathy; B37.49 Other urogenital candidiasis; E87.29 Other acidosis; I47.20 Ventricular tachycardia, unspecified; I47.1 Supraventricular tachycardia; Y83.8 Other surgical procedures as the cause of abnormal reaction of the patient, or of later complication, without mention of misadventure at the time of the procedure; Z20.822 Contact with and (suspected) exposure to COVID-19; E11.22 Type 2 diabetes mellitus with diabetic chronic kidney disease; N40.0 Benign prostatic hyperplasia without lower urinary tract symptoms; E03.9 Hypothyroidism, unspecified; N18.31 Chronic kidney disease, stage 3a; E87.6 Hypokalemia; R25.1 Tremor, unspecified; K43.9 Ventral hernia without obstruction or gangrene; R31.9 Hematuria, unspecified; I48.91 Unspecified atrial fibrillation; R45.1 Restlessness and agitation; I45.81 Long QT syndrome; I25.10 Atherosclerotic heart disease of native coronary artery without angina pectoris; E11.51 Type 2 diabetes mellitus with diabetic peripheral angiopathy without gangrene; I25.5 Ischemic cardiomyopathy; G47.00 Insomnia, unspecified; R53.81 Other malaise; Z95.5 Presence of coronary angioplasty implant and graft; Z88.5 Allergy status to narcotic agent; Z79.82 Long term (current) use of aspirin; Z79.899 Other long term (current) drug therapy; Z79.4 Long term (current) use of insulin; Z79.890 Hormone replacement therapy
CPT/HCPCS: 36415; 36416; 36600; 71045; 80048; 80053; 81001; 82805; 83735; 83880; 84443; 84484; 85025; 87070; 87086; 93005; 93010; 93306; 94002; 94003; 94640; 94660; 95816; 95819; 95957; 97139; C9113; J0282; J0290; J0696; J1120; J1250; J1650; J1815; J1940; J2248; J2250; J2704; J3010; J3475; J3480; J3490; J7060; J7070; J7620; J7999; P9047